=== PATIENT | male | born 1985 | race Caucasian/White ===

== ENCOUNTER 2019-06-25 08:00 | Emergency (ER) | payer OTHER ==
[~2019-06-25] VITALS: Ht 180.3 cm; Wt 104.3 kg
[2019-06-25] MEDS ORDERED: PROTONIX40 MG PO (10:15)
[2019-06-25 10:23] VITALS: BP 134/88
--- NOTE | 2019-06-29 12:42 | EKG ---
[address] [address] ELECTROCARDIOGRAM REPORT Name: DOT MORENO Room [facility]: [id number] Admission: 06/25/19 Attend Phys: Discharge: 06/25/19 Date of : 83 Report #: [id number] THIS REPORT FOR: //name// [facility] ED Test Date: 2019-06-25 Test Time: 08:46:48 Pat Name: DOT MORENO Department: Room: Gender: Electrologist: SASHA : 1985 Requested By: Javier Flores Order Number: [id number] MD: Jonah Alarcon Measurements Intervals [place] Rate: 98 P: 42 NV: 141 QRS: 26 QRSD: 95 T: 34 QT: 321 QTc: 410 Interpretive Statements Sinus rhythm No previous ECG available for comparison Electronically Signed On 06-29-2019 12:41:42 [employer] by Jonah Alarcon [email or web address] <ELECTRONICALLY SIGNED> By: Jonah Alarcon MD 06/29/19 [id number] [id number] Jonah Alarcon MD /FREDA
== END 2019-06-25 10:24 | disposition home or self-care (01) ==
LOC: ER 08:00
DX: K21.9 Gastro-esophageal reflux disease without esophagitis (principal); R05 Cough